=== PATIENT | female | born 1990 | race American Indian/Alaskan Native ===

== ENCOUNTER 2021-10-31 09:43 | Emergency (ER) | payer MEDICAID ==
[2021-10-31 10:20] VITALS: BP 160/115
== END 2021-10-31 19:00 | disposition left against medical advice (07) ==
LOC: ED 09:43
DX: R22.0 Localized swelling, mass and lump, head (principal); Z53.21 Procedure and treatment not carried out due to patient leaving prior to being seen by health care provider